=== PATIENT | female | born 1990 | race Caucasian/White ===

== ENCOUNTER 2021-03-24 15:35 | Emergency (ER) | payer BC, SELFPAY ==
--- NOTE | 2021-03-24 15:40 | XRR_ITS ---
PROCEDURE INFORMATION: Exam: XR Pelvis Exam date and time: 03/24/2021 3:40 PM Age: 30 years old Clinical indication: Vaginal pain; Additional info: Saddle pain TECHNIQUE: Imaging protocol: XR pelvis. Views: 1 or 2 view. COMPARISON: No relevant prior studies available. FINDINGS: Bones/joints: No fracture or other acute osseous abnormality. SI joints and symphysis pubis are intact. Minimal scoliosis of the lower lumbar spine, convex to the left. Bilateral hip joints are unremarkable. Soft tissues: The soft tissues appear unremarkable. XR/XR pelvis min 3V [id number] IMPRESSION: No acute abnormality demonstrated. Radiation Dose CTDIVOL = (mGy): DLP = (mGy-cm)
[2021-03-24 15:51] VITALS: BP 156/80; PULSE 100; RESP 16; TEMP 36.9; O2SAT 99; BMI 24.6
--- NOTE | 2021-03-24 16:46 | ED_ITS ---
Documented by User: Jose G Cason MD 03/25/21 15:23 HPI - Trauma General: Chief Complaint: Trauma Stated Complaint: pelvic injury:rammed into saddle horn Time Seen by Provider: 03/24/21 16:09 History of Present Illness: HPI narrative: Ms. Jim is a 30-year-old lady without significant past medical history presents emerged department due to pelvic pain. She has been at her baseline health without significant changes, she reports riding mule earlier on some sort of an obstacle course when the mule tripped and she was thrown forward. She did not get thrown off the animal however did slide forward and is unsure if she hit her pelvis on the saddle horn or the animal. She had some discomfort in her pelvic area however this was moderate to mild. She wrote around for another 20 minutes or so and then had marked pain worsening when she attempted to bring her legs together under resistance. She subsequently has been unable to walk. She has not had the urge to urinate or defecate so has not tried. No bleeding that she has notice. No numbness or tingling. No other specific exacerbating or relieving factors. Review of Systems General: Reports: 10 or more systems reviewed and unremarkable except in HPI and below Physical Exam Narrative: EXAM NARRATIVE: GENERAL/CONSTITUTIONAL - well-appearing. No acute distress. Visible discomfort with movement. Eyes -no scleral icterus, no conjunctival injection ENMT - Atraumatic external nose and ears. Moist mucous membranes NECK - supple. trachea midline CARDIOVASCULAR - regular rate and rhythm. RESPIRATORY -clear to auscultation bilaterally. ABDOMEN/GI - Nontender. Nondistended. No tenderness to percussion or evidence of peritonitis PELVIC - performed with comptometrist present. No evidence of acute traumatic injury. External exam without laceration or contusion. No blood at urethral meatus. Speculum exam unremarkable without traumatic injury. Cervical os closed without blood. MSK - Extremities without obvious deformity or tenderness to palpation. CMS intact. SKIN - Warm, Dry NEURO - alert and appropriately oriented. strength and sensation intact. Moves all extremities equally. Course ED course: - Patient was seen and evaluated by me at bedside -Vital signs obtained - Initial evaluation notable for exam as noted above -Analgesia ordered - Imaging notable for no acute abnormality noted on x-ray - Given continued degree of discomfort and inability to walk CT imaging warranted. - Patient care handed off to Dr. Joiner pending CT read, reevaluation of ability to ambulate, and confirmation of ability to void. Vital Signs: Vital signs: Vital Signs Temperature 98.4 F 03/24/21 20:41 Pulse Rate 95 03/24/21 20:41 Respiratory Rate 16 03/24/21 20:41 Blood Pressure 134/79 03/24/21 20:41 Pulse Oximetry 98 03/24/21 20:41 MDM - Trauma Medical Records: Attestation: I reviewed the patient's medical records. Lab Data: Attestation: I reviewed the patient's lab results. Labs: Lab Results 03/24/21 19:36 Urine Color Yellow (Yellow) Urine Appearance Clear (CLEAR) Urine pH 5 (5-7) Ur Specific Gravit y 1.010 (1.005-1.030) Urine Protein Neg (Negative) Urine Glucose (UA) Norm (Normal) Urine Ketones Negative (Negative) Urine Blood Neg (Negative) Urine Nitrate Negative (Negative) Urine Bilirubin Neg (Negative) Urine Urobilinogen Norm mg/dL mg/dL (Negative) Ur Leukocyte Suzanne ase Negative (Negative) Discharge Plan Discharge Patient Disposition: Home Clinical Impression: Contusion of pelvis Qualifiers: Encounter type: initial encounter Qualified Code(s): S30.0XXA - Contusion of lower back and pelvis, initial encounter Condition: Stable Prescriptions: New hydrocodone-acetaminophen 5-325 mg tablet 1 tab PO Q8H PRN (Reason: pain) Qty: 12 RF: 0 Discharge Orders: Discharge ED (Routine); Ordered 03/24/21 Ordered By: Wyatt Joiner Discharge Diet: Advance as tolerated Discharge Activity: Increase activity as tolerated Patient Instructions: Contusion in Adults (ED) Activity Restrictions/Additional Instructions: Ice may help with pain and swelling. Pain medication as directed. You also may take anti-inflammatory pain medication. Return for worsening pain, numbness or tingling, especially to the groin and genital area, inability to urinate or have bowel movements, or other concerning symptoms. 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 Lopez. This lady had had some pelvic trauma. CT is read of the abdomen pelvis with contrast. It shows no evidence of fracture, hemorrhage, or other trauma. The patient after pain medication has stood in the room and transferred without significant worsening of her pain. She has urinated as well without any problem. She will go home on pain medication. She knows to return for any new or worsening symptoms Lab Data: Labs: Lab Results 03/24/21 19:36 Urine Color Yellow (Yellow) Urine Appearance Clear (CLEAR) Urine pH 5 (5-7) Ur Specific Gravit y 1.010 (1.005-1.030) Urine Protein Neg (Negative) Urine Glucose (UA) Norm (Normal) Urine Ketones Negative (Negative) Urine Blood Neg (Negative) Urine Nitrate Negative (Negative) Urine Bilirubin Neg (Negative) Urine Urobilinogen Norm mg/dL mg/dL (Negative) Ur Leukocyte Suzanne ase Negative (Negative) Discharge Plan Discharge Patient Disposition: Home Clinical Impression: Contusion of pelvis Qualifiers: Encounter type: initial encounter Qualified Code(s): S30.0XXA - Contusion of lower back and pelvis, initial encounter Condition: Stable Prescriptions: New hydrocodone-acetaminophen 5-325 mg tablet 1 tab PO Q8H PRN (Reason: pain) Qty: 12 RF: 0 Discharge Orders: Discharge ED (Routine); Ordered 03/24/21 Ordered By: Wyatt Joiner Discharge Diet: Advance as tolerated Discharge Activity: Increase activity as tolerated Patient Instructions: Contusion in Adults (ED) Activity Restrictions/Additional Instructions: Ice may help with pain and swelling. Pain medication as directed. You also may take anti-inflammatory pain medication. Return for worsening pain, numbness or tingling, especially to the groin and genital area, inability to urinate or have bowel movements, or other concerning symptoms. 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
--- NOTE | 2021-03-24 17:53 | CTR_ITS ---
PROCEDURE INFORMATION: Exam: CT Abdomen And Pelvis With Contrast Exam date and time: 03/24/2021 5:53 PM Age: 30 years old Clinical indication: Injury or trauma; Other: Pelvic injury, jammed into saddle horn; Blunt; Lower; Additional info: Pelvic trauma TECHNIQUE: Imaging protocol: Computed tomography of the abdomen and pelvis with contrast. Radiation optimization: All CT scans at this facility use at least one of these dose optimization techniques: automated exposure control; mA and/or kV adjustment per patient size (includes targeted exams where dose is matched to clinical indication); or iterative reconstruction. Contrast material: OMNI 350; Contrast volume: 100 ml; Contrast route: INTRAVENOUS (IV); COMPARISON: CR (PELVIS, ) 03/24/2021 4:21 PM RADIATION DOSE METRICS: Total DLP (mGy-cm): 1143.93 FINDINGS: Liver: Subtle 2.3 x 2 cm mildly hypodense lesion with peripheral enhancement in the right hepatic lobe, possibly a hemangioma. Gallbladder and bile ducts: No radiodense gallstones. No biliary ductal dilatation. Pancreas: Unremarkable. Spleen: Unremarkable. Adrenal glands: Normal. No mass. Kidneys and ureters: 6 mm low-density right renal lesion, too small to characterize. No radiodense calculi. No hydronephrosis. Stomach and bowel: No bowel wall thickening. No obstruction. No pneumatosis. Appendix: Status post appendectomy. Intraperitoneal space: No free fluid. No organized fluid collection. No free air. Vasculature: Unremarkable. No aneurysm. Lymph nodes: No pathologically enlarged lymph nodes. Urinary bladder: Unremarkable as visualized. Reproductive: Unremarkable. Bones/joints: No acute osseous abnormality. Mild degenerative changes. Soft tissues: Unremarkable. CT/CT abdomen pelvis w con* [id number]: 1[address] No CT evidence of acute intra-abdominal or pelvic traumatic injury. 2. Additional findings, as above. COMMENTS: Consistent with the [employer]'s Incidental Findings Committee white paper (J Am Rishabh Radiol 2018): Any incidental renal lesion less than 1 cm or classified as too small to characterize, or any incidental cystic renal lesion characterized as simple-appearing, is likely benign. No follow-up imaging is recommended for these lesions per consensus recommendations based on imaging criteria. Radiation Dose CTDIVOL = (mGy): DLP = 1143.93 (mGy-cm)
[2021-03-24] MEDS: iohexol 350 mg/mL 100 mL Btl IV (18:36)
[2021-03-24 19:05] VITALS: BP 134/79; PULSE 100; RESP 16; O2SAT 100
[2021-03-24] MEDS: morphine 4 mg/mL SDV 1 mL IVP (19:08)
[2021-03-24 19:43] LABS: Add Urine Microscopic? NO; Charge for UA Resulting for Rev
[2021-03-24 19:53] LABS: Bilirubin Urine Neg (Negative); Blood Urine Neg (Negative); Glucose Urine UA Norm (Normal); Ketones Urine Negative (Negative); Leukocyte Esterase Urine Negative (Negative); Nitrate Urine Negative (Negative); Protein Urine Neg (Negative); Urine Appearance Clear (CLEAR); Urine Color Yellow (Yellow); Urobilinogen Urine Norm (Negative); pH Urine 5 (5-7)
[2021-03-24 20:33] VITALS: BP 134/79; PULSE 95; RESP 16; O2SAT 98
[2021-03-24 20:41] VITALS: BP 134/79; PULSE 95; RESP 16; TEMP 36.9; O2SAT 98
[2021-03-24] MEDS: oxyCODONE-APAP 5-325 mg Tablet 2 TAB PO (20:41)
== END 2021-03-24 20:42 | disposition home or self-care (01) ==
PROVIDERS: Emergency Medicine; Emergency Provider Emergency Medicine
DX: S30.0XXA Contusion of lower back and pelvis, initial encounter (principal); W22.8XXA Striking against or struck by other objects, initial encounter
CPT/HCPCS: 72190; 74177; 81003; 96374; 99283; J2270; Q9967